=== PATIENT | male | born 1960 | race African-American/Black ===

== ENCOUNTER 2021-04-20 21:18 | Inpatient (IN) | payer OTHER ==
[~2021-04-20] VITALS: Ht 180.3 cm; Wt 84.4 kg
[2021-04-20 22:38] LABS: BASOPHILS % 0.7 % (0.0-2.0); EOSINOPHILS % 0.2 % (0.0-5.0); HEMATOCRIT. 41.4 % (42.0-52.0); HEMOGLOBIN. 14.2 g/dL (14.0-18.0); LYMPHOCYTES % 32.5 % (20.0-50.0); MEAN CORPUSCULAR HEMOGLOBIN 34.2 pg (28.0-32.0); MEAN CORPUSCULAR VOLUME 99.6 fL (80.0-94.0); MEAN PLATELET VOLUME 8.5 fl (7.4-10.4); MONOCYTES % 11.4 % (2.0-8.0); NEUTROPHILS % 55.2 % (40.0-76.0); PLATELET 124 x1000/uL (130-400); RED BLOOD CELL COUNT 4.16 mill/uL (4.7-6.1); RED CELL DISTRIBUTION WIDTH 14.3 % (11.6-14.6)
[2021-04-20 22:45] LABS: CHLORIDE 103 mEq/L (98-107)
[2021-04-20] MEDS ORDERED: ASPIRIN 81MG TABLET PO ONE (22:45)
[2021-04-20] MEDS ORDERED: MORPHINE SULFATE 4 MG/ML CPJ (NOT FOR IM USE) IV STA (22:45)
[2021-04-20] MEDS ORDERED: ONDANSETRON HCL 4MG/2ML INJ IV STA (22:45)
[2021-04-20] MEDS: NITROGLYCERIN 0.4MG TABLET SL SL PRN ×3 (23:07→23:50)
[2021-04-20] MEDS ORDERED: LORAZEPAM 0.5MG TABLET PO ONE (23:45)
[2021-04-20] MEDS ORDERED: AMLODIPINE 5MG TABLET PO ONE (23:45)
[2021-04-21 00:21] LABS: *AMPHETAMINES SCREEN URINE NEGATIVE (NEGATIVE); *BARBITURATES SCREEN URINE NEGATIVE (NEGATIVE)
[2021-04-21 00:22] LABS: *BENZODIAZEPINES SCREEN URINE NEGATIVE (NEGATIVE); *COCAINE SCREEN URINE NEGATIVE (NEGATIVE); CANNABINOID URINE SCREEN NEGATIVE (NEGATIVE); METHADONE URINE SCREEN NEGATIVE (NEGATIVE); OPIATES URINE SCREEN NEGATIVE (NEGATIVE); PHENCYCLIDINE URINE SCREEN NEGATIVE (NEGATIVE)
[2021-04-21] MEDS ORDERED: MORPHINE SULFATE 2 MG/ML CPJ (NOT FOR IM USE) IV PRN (05:30)
[2021-04-21 09:00] VITALS: BP 158/82
[2021-04-21] MEDS: ASPIRIN 81MG TABLET PO SCH (10:49)
[2021-04-21 12:00] VITALS: BP 159/93
[2021-04-21] MEDS ORDERED: ACETAMINOPHEN 325MG TABLET PO PRN (12:30)
[2021-04-21] MEDS ORDERED: ONDANSETRON HCL 4MG/2ML INJ IV PRN (12:30)
[2021-04-21] MEDS ORDERED: REGADENOSON 0.4 MG/5 ML IV NR (15:30)
[2021-04-21 16:00] VITALS: BP 158/94
[2021-04-21] MEDS: AMLODIPINE 10MG TABLET PO SCH (18:31)
[2021-04-21 19:51] VITALS: BP 166/95
[2021-04-21] MEDS ORDERED: CLONIDINE 0.1MG TABLET PO PRN (21:15)
[2021-04-22] VITALS: BP 156/95
[2021-04-22 04:01] VITALS: BP 139/87
[2021-04-22 08:08] VITALS: BP 144/90
[2021-04-22] MEDS ORDERED: REGADENOSON 0.4 MG/5 ML IV ONE (08:18)
[2021-04-22] MEDS: ASPIRIN 81MG TABLET PO SCH (10:31)
[2021-04-22] MEDS: AMLODIPINE 10MG TABLET PO SCH (10:31)
[2021-04-22] MEDS ORDERED: AMLO10TA80 PO (11:00)
[2021-04-22 12:05] VITALS: BP 126/83
[2021-04-22 12:12] VITALS: BP 126/83
== END 2021-04-22 13:00 | disposition home or self-care (01) | DRG 311 ==
LOC: ER 21:18 → 6WST 04-21 00:16 → ENRESERV 04-21 08:01
PROVIDERS: ADMIT Internal Medicine; ATTEND Internal Medicine
DX: I20.0 Unstable angina (principal); I50.23 Acute on chronic systolic (congestive) heart failure; I11.0 Hypertensive heart disease with heart failure; I16.0 Hypertensive urgency; F17.210 Nicotine dependence, cigarettes, uncomplicated; Z20.822 Contact with and (suspected) exposure to COVID-19; D64.9 Anemia, unspecified; M79.10 Myalgia, unspecified site; Z71.6 Tobacco abuse counseling
CPT/HCPCS: 36415; 71045; 78452; 80053; 80305; 83880; 84443; 84484; 85025; 87426; 93005; 93017; 93306; 99291; A9500; J2270; J2405; J2785